=== PATIENT | female | born 1975 | race Caucasian/White ===

== ENCOUNTER 2019-06-24 07:44 | Observation (INO) ==
[2019-06-24] MEDS ORDERED: ONDANSETRON 4 MG/2 ML VIAL IV STA (08:15)
[2019-06-24] MEDS ORDERED: fentaNYL 100 MCG/2 ML VIAL IV STA ×3 (08:15→14:00)
[2019-06-24 08:45] LABS: Basophils % 0.5 % (0.0-0.8); Eosinophils % 0.2 % (0.00-10.9); Hematocrit 42.7 VOL% (35.7-47.0); Immature Granulocytes % 0.5 %; Immature Granulocytes Absolute 0.03 #; Lymphocytes # 0.6 10*3/uL (1.4-4.0); Mean Corpuscular HGB Conc 32.8 GM/DL (32-36); Mean Corpuscular Volume 95.5 FL (87-102); Mean Platelet Volume 8.8 FL (9.6-12.0); Monocytes % 2.2 % (1.7-12.7); Neutrophils % 87.6 % (38.7-73.9); Platelet Count 192 T/CUMM (130-400); Red Blood Count 4.47 MC/CUMM (3.8-5.5); Red Cell Distribution Width 12.3 % (9.3-17.3); White Blood Count 6.2 T/CUMM (4-12)
[2019-06-24 08:56] LABS: PT Patient Result 10.3 SECS (9.8-11.9); Partial Thromboplastin Time 23.6 SECS (23.9-33.8)
[2019-06-24 09:07] LABS: Calcium 9.1 MG/DL (8.5-10.1); Osmolality,Calculated 272.1 MOS/KG (273-304)
[2019-06-24 09:28] LABS: Barbiturates Screen,Urine Positive (Negative); Benzodiazepines Screen,Urine Negative (Negative); Cannabinoid Screen,Urine Negative (Negative); Opiate Screen,Urine Negative (Negative); Phencyclidine Screen,Urine Negative (Negative)
[2019-06-24 12:18] LABS: Appearance,CSF Clear; Lymphocytes,CSF 100 %; Red Blood Cell,CSF < 1 C/CUMM; White Blood Cell,CSF 2 C/CUMM
[2019-06-24] MEDS ORDERED: PROMETHAZINE 25 MG TABLET PO PRN (13:26)
[2019-06-24] MEDS ORDERED: tiZANidine 4 MG TABLET PO PRN (13:26)
[2019-06-24] MEDS ORDERED: DEXTROSE 10% 250 ML BAG IV PRN (13:30)
[2019-06-24] MEDS ORDERED: BUTALBITAL/ACETAMIN/CAFFEINE 50-325-40 MG TABLET PO PRN (13:30)
[2019-06-24] MEDS ORDERED: GLUCAGON 1 MG VIAL IM PRN (13:30)
[2019-06-24] MEDS ORDERED: ONDANSETRON 4 MG/2 ML VIAL IV PRN (13:30)
[2019-06-24] MEDS: SODIUM CHLORIDE 0.9% 1,000 ML IV SCH ×2 (13:38→22:40)
[2019-06-24 20:05] VITALS: BP 132/74
[2019-06-24] MEDS ORDERED: IBUPROFEN 800 MG TABLET PO PRN (22:47)
[2019-06-24] MEDS ORDERED: OXYMETAZOLINE 0.05% NASAL SPRAY 15 ML BOTTLE BOTH NARES PRN (22:47)
[2019-06-24] MEDS ORDERED: PROMETHAZINE 25 MG/1 ML VIAL IM PRN ×2 (23:30→23:45)
[2019-06-25 06:41] LABS: Basophils % 0.7 % (0.0-0.8); Eosinophils # 0.1 10*3/uL (0.0-0.87); Eosinophils % 1.5 % (0.00-10.9); Hematocrit 45.3 VOL% (35.7-47.0); Hemoglobin 14.5 GM/DL (12.0-16.0); Immature Granulocytes % 0.4 %; Immature Granulocytes Absolute 0.02 #; Lymphocytes # 1.5 10*3/uL (1.4-4.0); Lymphocytes % 27.1 % (21.3-54.2); Mean Corpuscular Volume 98.9 FL (87-102); Mean Platelet Volume 8.8 FL (9.6-12.0); Monocytes % 6.7 % (1.7-12.7); Neutrophils % 63.6 % (38.7-73.9); Platelet Count 199 T/CUMM (130-400); Red Blood Count 4.58 MC/CUMM (3.8-5.5); Red Cell Distribution Width 12.7 % (9.3-17.3); White Blood Count 5.5 T/CUMM (4-12)
[2019-06-25 07:07] LABS: Calcium 8.4 MG/DL (8.5-10.1); Osmolality,Calculated 275.5 MOS/KG (273-304)
[2019-06-25] MEDS ORDERED: ESCITALOPRAM 10 MG TABLET PO SCH (09:00)
[2019-06-25] MEDS ORDERED: ESTRADIOL 1 MG TABLET PO SCH (09:00)
[2019-06-25] MEDS: SODIUM CHLORIDE 0.9% 1,000 ML IV SCH (09:26)
== END 2019-06-25 12:10 | disposition home or self-care (01) ==
LOC: N.EDINP 07:44 → N.ED 07:44 → N.2E 15:35
PROVIDERS: ADMIT Internal Medicine; ATTEND Internal Medicine